=== PATIENT | female | born 1985 | race African-American/Black ===

== ENCOUNTER 2020-07-16 11:48 | Observation (INO) ==
[2020-07-16 14:42] LABS: Bacteria,Urine Occasional /HPF (Few); Bilirubin,Urine Negative (Negative); Blood, Urine Small mg/dL (Negative); Glucose,Urine (UA) Negative (Negative); Ketones,Urine 5 mg/dL (Negative); Mucus,Urine Few /LPF (Occasional); Nitrite,Urine Negative (Negative); Protein,Urine Negative; RBC,Urine 1 /HPF (0-4); Squamous Epithelial Cell,Urine Few /HPF (0-10); Urine Appearance Slightly Hazy (Clear); Urine Color Yellow (Yellow); Urine Specific Gravity 1.026 (1.001-1.035); Urine Urobilinogen < 2.0 EU/DL (0.2-1.0); WBC,Urine 1 /HPF (0-6)
[2020-07-16 15:24] LABS: Calcium 9.3 MG/DL (8.5-10.1); Osmolality,Calculated 269.8 MOS/KG (273-304)
[2020-07-16 15:27] LABS: Basophils % 0.3 % (0.0-0.8); Eosinophils # 0.1 10*3/uL (0.0-0.87); Eosinophils % 0.9 % (0.00-10.9); Hematocrit 24.5 VOL% (35.7-47.0); Immature Granulocytes % 0.6 %; Immature Granulocytes Absolute 0.05 #; Lymphocytes # 1.7 10*3/uL (1.4-4.0); Lymphocytes % 18.7 % (21.3-54.2); Mean Corpuscular HGB Conc 25.7 GM/DL (32-36); Mean Corpuscular Volume 54.1 FL (87-102); Monocytes % 7.8 % (1.7-12.7); NRBC # 0.02 10*3/uL; Neutrophils % 71.7 % (38.7-73.9); Platelet Count 203 T/CUMM (130-400); Red Blood Count 4.53 MC/CUMM (3.8-5.5); Red Cell Distribution Width 21.5 % (9.3-17.3)
[2020-07-16 15:34] LABS: Hemoglobin 6.3 GM/DL (12.0-16.0)
[2020-07-16] MEDS ORDERED: SODIUM CHLORIDE 0.9% 1,000 ML IV PRN (16:59)
[2020-07-16] MEDS: ZALEPLON 5 MG CAPSULE PO PRN (23:32)
[2020-07-17 06:31] LABS: Basophils % 0.4 % (0.0-0.8); Eosinophils # 0.1 10*3/uL (0.0-0.87); Eosinophils % 1.1 % (0.00-10.9); Hematocrit 27.9 VOL% (35.7-47.0); Immature Granulocytes % 0.2 %; Immature Granulocytes Absolute 0.02 #; Lymphocytes # 1.4 10*3/uL (1.4-4.0); Lymphocytes % 16.7 % (21.3-54.2); Monocytes % 8.5 % (1.7-12.7); NRBC # 0.02 10*3/uL; Neutrophils % 73.1 % (38.7-73.9); Platelet Count 281 T/CUMM (130-400); Red Blood Count 4.73 MC/CUMM (3.8-5.5); Red Cell Distribution Width 27.4 % (9.3-17.3); White Blood Count 8.3 T/CUMM (4-12)
[2020-07-17 06:34] LABS: Hemoglobin 7.8 GM/DL (12.0-16.0)
[2020-07-17 06:55] LABS: Hypochromasia 2+; Microcytosis Slight; Platelet Estimate Adequate
[2020-07-17] MEDS ORDERED: ACETAMINOPHEN 325 MG TABLET PO PRN (20:05)
[2020-07-17] MEDS ORDERED: ONDANSETRON 4 MG/2 ML VIAL IV PRN (20:05)
[2020-07-17] MEDS: ZALEPLON 5 MG CAPSULE PO PRN (21:03)
[2020-07-18 07:10] VITALS: BP 112/74
[2020-07-18] MEDS ORDERED: INFLUENZA VIRUS VACCINE 0.5 ML SYRINGE IM ONE (09:40)
== END 2020-07-18 11:05 | disposition home or self-care (01) ==
LOC: N.EDINP 11:48 → N.ED 11:48 → N.OB 16:47
PROVIDERS: ADMIT Obstetrics & Gynecology; ATTEND Obstetrics & Gynecology